=== PATIENT | female | born 1985 ===

== ENCOUNTER 2017-12-05 15:20 | Emergency (ER) | payer OTHER ==
[2017-12-05 15:43] VITALS: TEMP 98.8; O2SAT 99
--- NOTE | 2017-12-05 16:19 | ED PDOC ---
HPI: Head Injury Time Seen by Provider: 12/05/17 15:54 Chief Complaint (Nursing): Trauma Chief Complaint (Provider): head injury History Per: Patient History/Exam Limitations: no limitations Injury Occurred (Timing): Just Before Arrival Additional Complaint(s): 32 year old female presents to the emergency department for an evaluation of a left-sided head injury with dizziness status post being struck by a fallen shelf prior to arrival. Patient states she is unsure if she loss consciousness but "does not remember much". She denies any use of Aspirin or other blood thinners. PMD: none provided Past Medical History Reviewed: Historical Data, Nursing Documentation, Vital Signs Vital Signs: Last Vital Signs Temp 98.8 F 12/05/17 15:40 Pulse 60 12/05/17 15:40 Resp 16 12/05/17 15:40 BP 112/65 12/05/17 15:40 Pulse Ox 99 12/05/17 15:40 - Medical History PMH: No Chronic Diseases - Surgical History Surgical History: No Surg Hx - Family History Family History: States: Unknown Family Hx - Social History Current smoker - smoking cessation education provided: No Alcohol: None Drugs: Denies - Allergies Allergies/Adverse Reactions: Allergies Allergy/AdvReac Type Severity Reaction Status Date / Time No Known Allergies Allergy Verified 12/05/17 15:39 Review of Systems ROS Statement: Except As Marked, All Systems Reviewed And Found Negative Neurological: Positive for: Headache (left-sided), Dizziness, Other (unknown LOC ) Physical Exam - Reviewed Nursing Documentation Reviewed: Yes Vital Signs Reviewed: Yes - Physical Exam Appears: Positive for: Non-toxic, No Acute Distress Head Exam: Negative for: ATRAUMATIC Skin: Positive for: Normal Color Eye Exam: Positive for: Normal appearance ENT: Positive for: Normal ENT Inspection Neck: Positive for: Normal Cardiovascular/Chest: Positive for: Regular Rate, Rhythm Respiratory: Positive for: Normal Breath Sounds. Negative for: Respiratory Distress Extremity: Positive for: Normal ROM (upper/lower) Neurologic/Psych: Positive for: Alert, manager sharepoint II-XII (grossly intact), Oriented, Other (mild parietal tenderness without hematoma or laceration). Negative for: Motor/Sensory Deficits - ECG O2 Sat by Pulse Oximetry: 99 (RA) Pulse Ox Interpretation: Normal Medical Decision Making Medical Decision Making: Initial Impression: Head injury Differential Diagnosis: Intracranial hemorrhage Initial Plan: * CT head without contrast Scribe Attestation: Documented by Radha Bedolla, acting as a scribe for Laura King MD. Provider Scribe Attestation: All medical record entries made by the Scribe were at my direction and personally dictated by me. I have reviewed the chart and agree that the record accurately reflects my personal performance of the history, physical exam, medical decision making, and the department course for this patient. I have also personally directed, reviewed, and agree with the discharge instructions and disposition. Disposition - Clinical Impression Clinical Impression: Head injury, Concussion - Patient ED Disposition Is Patient to be Admitted: Transfer of Care - Disposition Referrals: Maryellen Sigala MD [Family Provider] - ([facility]) Disposition: Transfer of Care Disposition Time: 17:00 Condition: STABLE Instructions: Concussion in Adults, Minor Head Injury Print Language: SYRIAN Patient Signed Over To: Micheline Nguyen
--- NOTE | 2017-12-05 17:31 | CT ---
Date of service: 12/05/2017 PROCEDURE: CT HEAD WITHOUT CONTRAST. HISTORY: head injury headache COMPARISON: None available. TECHNIQUE: Axial computed tomography images were obtained through the head/brain without intravenous contrast. Coronal and sagittal reconstructed images. Radiation dose: Total exam DLP = 734.37 mGy-cm. This CT exam was performed using one or more of the following dose reduction techniques: Automated exposure control, adjustment of the mA and/or kV according to patient size, and/or use of iterative reconstruction technique. FINDINGS: HEMORRHAGE: No intracranial hemorrhage. BRAIN: No mass effect or edema. No atrophy or chronic microvascular ischemic changes. VENTRICLES: Unremarkable. No hydrocephalus. CALVARIUM: Unremarkable. PARANASAL SINUSES: Unremarkable as visualized. No significant inflammatory changes. MASTOID AIR CELLS: Unremarkable as visualized. No inflammatory changes. OTHER FINDINGS: None. IMPRESSION: No acute intracranial abnormalities. No significant findings to account for the clinical presentation.
--- NOTE | 2017-12-05 17:52 | ED PDOC ---
- ECG O2 Sat by Pulse Oximetry: 99 (RA) Pulse Ox Interpretation: Normal Medical Decision Making Medical Decision Making: Time: 1700 Patient endorsed to me by Dr. King pending CT head, reevaluation. Accession No. : [id number] Patient Name / ID : MARY MCCLOUD / [id number] Exam Date : 12/05/2017 17:09:38 ( Approved ) Study Comment : Sex / Age : F / 32Y Creator : Jony Carranza MD Dictator : Jony Carranza MD Paper Tube Cutter : Lead Ramp Agent : Jony Carranza MD Approver2 : Report Date : 12/05/2017 17:30:13 My Comment : Date of service: 12/05/2017 PROCEDURE: CT HEAD WITHOUT CONTRAST. HISTORY: head injury headache COMPARISON: None available. TECHNIQUE: Axial computed tomography images were obtained through the head/brain without intravenous contrast. Coronal and sagittal reconstructed images. Radiation dose: Total exam DLP = 734.37 mGy-cm. This CT exam was performed using one or more of the following dose reduction techniques: Automated exposure control, adjustment of the mA and/or kV according to patient size, and/or use of iterative reconstruction technique. FINDINGS: HEMORRHAGE: No intracranial hemorrhage. BRAIN: No mass effect or edema. No atrophy or chronic microvascular ischemic changes. VENTRICLES: Unremarkable. No hydrocephalus. CALVARIUM: Unremarkable. PARANASAL SINUSES: Unremarkable as visualized. No significant inflammatory changes. MASTOID AIR CELLS: Unremarkable as visualized. No inflammatory changes. OTHER FINDINGS: None. IMPRESSION: No acute intracranial abnormalities. No significant findings to account for the clinical presentation. DW pt findings and plan of care. Concussion instructions given. f/u 1 week pmd/ clinic Scribe Attestation: Documented by Fallon Negron, acting as a scribe for Micheline Nguyen MD. Provider Scribe Attestation: All medical record entries made by the Scribe were at my direction and personally dictated by me. I have reviewed the chart and agree that the record accurately reflects my personal performance of the history, physical exam, medical decision making, and the department course for this patient. I have also personally directed, reviewed, and agree with the discharge instructions and disposition. Disposition - Clinical Impression Clinical Impression: Head injury, Concussion - POA Present On Arrival: None - Disposition Referrals: Maryellen Sigala MD [Family Provider] - ([facility]) Disposition: Routine/Home Disposition Time: 18:00 Condition: STABLE Instructions: Concussion in Adults, Minor Head Injury Print Language: MICRONESIAN
[2017-12-05 18:49] VITALS: BP 118/70; PULSE 66; RESP 18
== END 2017-12-05 18:37 | disposition home or self-care (01) ==
LOC: SUPCPDRO 15:20 → H.ER 15:20
DX: S06.0X0A Concussion without loss of consciousness, initial encounter (principal); S09.90XA Unspecified injury of head, initial encounter